=== PATIENT | female | born 1945 | race Hispanic/Latino ===

== ENCOUNTER 2018-01-08 06:37 | Emergency (ER) | payer MEDICARE ==
--- NOTE | 2018-01-08 07:17 | Emergency Department Report ---
ED General Adult HPI - General Chief complaint: Medical Clearance Stated complaint: POSS RENAL FAILURE Time Seen by Provider: 01/08/18 07:10 Source: patient, EMS (ems notes not available at time of chart dictation) Mode of arrival: Stretcher Limitations: No Limitations - History of Present Illness Initial comments: Primary care Dr.: Dr. Demian Roth Urology: Dr. Gillis This is a 72-year-old female with a past medical history of hypertension and renal insufficiency. She does not think that she has a private plasterer spot at this time. She presents to the ER with a complaint of inability to urinate. This is constant and started within the past 12 hours. It does not radiate anywhere, and has no exacerbating or relieving factors. She thinks that she might have a urinary tract infection but is not sure. She denies headache, neck pain, chest pain, abdominal pain, shortness of breath, extremity weakness. -: Gradual Consistency: constant Improves with: none Worsens with: none Associated Symptoms: denies other symptoms - Related Data Home Medications Medication Instructions Recorded Confirmed Last Taken Aspirin [Aspirin BABY CHEW TAB] 81 mg PO DAILY 01/08/18 01/08/18 Unknown Beclomethasone Dipropionate [Qvar] 1 puff INHALATION PRN PRN 01/08/18 01/08/18 Unknown Biotin 5,000 mcg SL DAILY 01/08/18 01/08/18 Unknown Calcium Acetate [Phoslo] 667 mg PO TID 01/08/18 01/08/18 Unknown Clopidogrel Bisulfate [Clopidogrel] 75 mg PO DAILY 01/08/18 01/08/18 Unknown Furosemide [Lasix TAB] 40 mg PO QDAY 01/08/18 01/08/18 Unknown Levothyroxine [Synthroid] 75 mcg PO QAM 01/08/18 01/08/18 Unknown Lisinopril [Zestril] 40 mg PO DAILY 01/08/18 01/08/18 Unknown Lovastatin [Altoprev] 40 mg PO HS 01/08/18 01/08/18 Unknown Metoprolol Tartrate 50 mg PO BID 01/08/18 01/08/18 Unknown [place]-3S/Dha/Epa/Fish Oil [Fish 1,200 mg PO DAILY 01/08/18 01/08/18 Unknown Oil 1,200 mg Softgel] Allergies Allergy/AdvReac Type Severity Reaction Status Date / Time meperidine [From Demerol] AdvReac Swelling Verified 01/08/18 07:21 ED Review of Systems ROS: Stated complaint: POSS RENAL FAILURE Other details as noted in HPI Comment: All other systems reviewed and negative Genitourinary: other (retention) ED Past Medical Hx - Medications Home Medications: Home Medications Medication Instructions Recorded Confirmed Last Taken Type Aspirin [Aspirin BABY CHEW TAB] 81 mg PO DAILY 01/08/18 01/08/18 Unknown History Beclomethasone Dipropionate [Qvar] 1 puff INHALATION PRN PRN 01/08/18 01/08/18 Unknown History Biotin 5,000 mcg SL DAILY 01/08/18 01/08/18 Unknown History Calcium Acetate [Phoslo] 667 mg PO TID 01/08/18 01/08/18 Unknown History Clopidogrel Bisulfate [Clopidogrel] 75 mg PO DAILY 01/08/18 01/08/18 Unknown History Furosemide [Lasix TAB] 40 mg PO QDAY 01/08/18 01/08/18 Unknown History Levothyroxine [Synthroid] 75 mcg PO QAM 01/08/18 01/08/18 Unknown History Lisinopril [Zestril] 40 mg PO DAILY 01/08/18 01/08/18 Unknown History Lovastatin [Altoprev] 40 mg PO HS 01/08/18 01/08/18 Unknown History Metoprolol Tartrate 50 mg PO BID 01/08/18 01/08/18 Unknown History [place]-3S/Dha/Epa/Fish Oil [Fish 1,200 mg PO DAILY 01/08/18 01/08/18 Unknown History Oil 1,200 mg Softgel] ED Physical Exam - General General appearance: alert, in no apparent distress - Head Head exam: Present: atraumatic, normocephalic - Eye Eye exam: Present: normal appearance, EOMI. Absent: nystagmus - ENT ENT exam: Present: normal exam, normal orophraynx, mucous membranes moist, normal external ear exam - Neck Neck exam: Present: normal inspection, full ROM. Absent: tenderness, meningismus - Respiratory Respiratory exam: Present: normal lung sounds bilaterally. Absent: respiratory distress - Cardiovascular Cardiovascular Exam: Present: regular rate, normal rhythm, normal heart sounds. Absent: bradycardia, tachycardia, irregular rhythm, systolic murmur, diastolic murmur, rubs, gallop - GI/Abdominal GI/Abdominal exam: Present: soft. Absent: distended, tenderness, guarding, rebound, rigid, pulsatile mass - Extremities Exam Extremities exam: Present: normal inspection, full ROM, normal capillary refill , other (2+ pulses noted in the bilateral upper, lower extremities. Compartments soft. No long bony tenderness. The pelvis is stable.). Absent: tenderness, pedal edema, joint swelling, calf tenderness - Back Exam Back exam: Present: normal inspection, full ROM. Absent: tenderness, CVA tenderness (R), paraspinal tenderness, vertebral tenderness - Neurological Exam Neurological exam: Present: alert, oriented X3, CN II-XII intact, other ( Extraocular movements intact. Tongue midline. No facial droop. Facial sensation intact to light touch in the V1, V2, V3 distribution bilaterally. 5 and 5 strength in 4 extremities.. Sensation is intact to light touch in 4 extremities.). Absent: motor sensory deficit - Psychiatric Psychiatric exam: Present: normal affect, normal mood - Skin Skin exam: Present: warm, dry, intact, normal color. Absent: rash ED Course Vital Signs 01/08/18 01/08/18 01/08/18 07:08 07:15 07:16 Temperature 98.2 F Pulse Rate 86 85 Respiratory 18 18 Rate Blood Pressure 193/87 Blood Pressure 176/86 [Right] O2 Sat by Pulse 94 95 95 Oximetry 01/08/18 01/08/18 01/08/18 07:20 07:30 07:45 Temperature 98.7 F Pulse Rate 88 86 82 Respiratory 20 17 16 Rate Blood Pressure 176/86 202/84 194/71 Blood Pressure [Right] O2 Sat by Pulse 99 95 97 Oximetry 01/08/18 01/08/18 01/08/18 08:00 08:15 08:30 Temperature Pulse Rate 82 81 81 Respiratory 18 19 18 Rate Blood Pressure 195/79 203/76 192/92 Blood Pressure [Right] O2 Sat by Pulse 95 98 99 Oximetry 01/08/18 01/08/18 01/08/18 08:45 09:00 09:15 Temperature Pulse Rate 73 74 77 Respiratory 17 16 19 Rate Blood Pressure 203/76 202/79 202/79 Blood Pressure [Right] O2 Sat by Pulse 98 97 Oximetry 01/08/18 01/08/18 01/08/18 09:30 09:45 10:00 Temperature Pulse Rate 80 80 69 Respiratory 20 13 19 Rate Blood Pressure 179/76 178/78 185/69 Blood Pressure [Right] O2 Sat by Pulse 95 98 95 Oximetry 01/08/18 01/08/18 01/08/18 10:15 10:30 10:35 Temperature Pulse Rate 83 85 81 Respiratory 16 20 Rate Blood Pressure 181/84 196/81 196/85 Blood Pressure [Right] O2 Sat by Pulse 95 96 Oximetry 01/08/18 10:36 Temperature Pulse Rate 81 Respiratory Rate Blood Pressure 196/85 Blood Pressure [Right] O2 Sat by Pulse Oximetry - Reevaluation(s) Reevaluation #1: 01/08/18 07:54 Differential diagnosis, including but not limited to: Chronic renal insufficiency, obstructive urinary tract infection, obstructive uropathy, incidental elevated blood pressure, electrolyte derangement Assessment and plan: 72-year-old female with a primary complaint of urinary retention. She is afebrile with reassuring vital signs with the exception of elevated blood pressure. Please reference the [employer] clinical policy on blood pressure/hypertension that is not acutely symptomatic. A Ferrer catheter will be placed to a leg bag. We'll check basic laboratory studies, urinalysis and a urine culture. Reevaluation #2: 01/08/18 10:45 Laboratory studies demonstrated hyponatremia and mild hypokalemia. Patient put out 300 mL of urine, clear, did not appear to be consistent with urinary tract infection. Blood pressure is somewhat improved. I have contacted the patient' s primary plasterer spot, Dr. Beatriz Garza. He agrees with plan for 1 L of IV fluid and 60 g of Kayexalate. He indicates he will have the office contact the patient on her phone number to arrange follow-up on Sunday for recheck. The patient will be discharged with a Ferrer catheter placed on a leg bag, and she will also be instructed to follow-up with her outpatient urology specialist, Dr. Gillis. ED Medical Decision Making - Lab Data Result diagrams: 01/08/18 07:44 01/08/18 07:44 Vital Signs 01/08/18 01/08/18 01/08/18 07:08 07:15 07:16 Temperature 98.2 F Pulse Rate 86 85 Respiratory 18 18 Rate Blood Pressure 193/87 Blood Pressure 176/86 [Right] O2 Sat by Pulse 94 95 95 Oximetry 01/08/18 07:20 Temperature 98.7 F Pulse Rate 88 Respiratory 20 Rate Blood Pressure 176/86 Blood Pressure [Right] O2 Sat by Pulse 99 Oximetry Critical care attestation.: If time is entered above; I have spent that time in minutes in the direct care of this critically ill patient, excluding procedure time. ED Disposition Clinical Impression: CKD (chronic kidney disease), Urinary retention Disposition: - TO HOME OR SELFCARE Is pt being admited?: No Does the pt Need Aspirin: No Condition: Stable Instructions: Chronic Kidney Disease (ED), Acute Urinary Retention in Women (ED ) Additional Instructions: Continue current outpatient medications. Please note that blood pressure was elevated. This should be followed up by a primary care doctor or nephrology specialist within the next month. Long-term complications of hypertension and elevated blood pressure includes stroke, heart attack, disability, paralysis, loss of quality of life. Please note that your primary plasterer spot, Dr. Garza would like you to follow up by this Sunday for a recheck. He indicated his office would contact the patient, but I also recommend that the patient contact the office today to confirm and arrange this follow-up for Sunday. The front office staff know that the emergency medicine physician has spoken to her private plasterer spot, and he would like to see you on Sunday. Keep the Ferrer catheter in place attached to the leg bag, and follow-up with urology specialist, Dr. Gillis, within the next 5-7 days for trial of void in the office. Return to the ER right away with new pain, worsened pain, migration of pain, projectile vomiting, change in mental status, confusion, inability to tolerate liquid feeds. Referrals: ABDULLAHI GARCIA MD [Primary Care Provider] - 3-5 Days JIN DAVILA MD [Staff Physician] - 3-5 Days JERE GILLIS MD [Referring] - 3-5 Days
[2018-01-08 08:10] LABS: Hematocrit 30.6 % (30.3-42.9); Mean Corpuscular HGB Conc 33 % (30-34); Mean Corpuscular Hemoglobin 27 pg (28-32); Mean Corpuscular Volume 82 fl (79-97); Platelet Count 274 K/mm3 (140-440); Red Blood Count 3.72 M/mm3 (3.65-5.03); Red Cell Distribution Width 14.5 % (13.2-15.2)
[2018-01-08 08:15] LABS: Calcium 9.3 mg/dL (8.4-10.2)
[2018-01-08] MEDS ORDERED: LASIX PO SCH (10:00)
[2018-01-08] MEDS ORDERED: KIONEX PO ONE (10:01)
[2018-01-08] MEDS ORDERED: NACL 0.9% 1000 ML 1,000 ML IV ONE (10:01)
[2018-01-08 10:10] LABS: RBC,Urine < 1.0 /HPF (0.0-6.0); WBC,Urine < 1.0 /HPF (0.0-6.0)
[2018-01-08 10:12] LABS: Bilirubin,Urine Negative (Negative); Blood,Urine Negative (Negative); Color,Urine Yellow (Yellow); Urobilinogen,Urine < 2.0 mg/dL (<2.0)
[2018-01-08] MEDS ORDERED: ZESTRIL PO SCH (10:30)
[2018-01-08] MEDS ORDERED: LOPRESSOR PO SCH (10:30)
[2018-01-08] MEDS ORDERED: LASIX ONE (10:31)
[2018-01-08 13:15] VITALS: BP 208/78
== END 2018-01-08 12:44 | disposition home or self-care (01) ==
LOC: ED 06:37
DX: I12.9 Hypertensive chronic kidney disease with stage 1 through stage 4 chronic kidney disease, or unspecified chronic kidney disease (principal); N18.9 Chronic kidney disease, unspecified; R33.9 Retention of urine, unspecified; Z79.82 Long term (current) use of aspirin; Z88.8 Allergy status to other drugs, medicaments and biological substances
CPT/HCPCS: 36415; 51702; 80048; 81001; 83735; 85027; 87086; 99283; J7030